=== PATIENT | male | born 1995 | race Two or more races ===

== ENCOUNTER 2018-12-24 12:38 | Emergency (ER) | payer SELFPAY ==
[~2018-12-24] VITALS: Ht 167.6 cm; Wt 72.6 kg
[2018-12-24 13:40] VITALS: BP 131/85
== END 2018-12-24 14:39 | disposition home or self-care (01) ==
LOC: ER 12:47
DX: J32.9 Chronic sinusitis, unspecified (principal); Z90.89 Acquired absence of other organs

== ENCOUNTER 2024-04-27 21:49 | Emergency (ER) | payer MEDICAID, OTHER ==
[~2024-04-27] VITALS: Ht 167.6 cm; Wt 90.0 kg
[2024-04-27 21:57] VITALS: BP 132/73; PULSE 85; RESP 18; TEMP 97.9; O2SAT 95
[2024-04-28] MEDS: IBUPROFEN 800 MG TAB PO ONE (01:26)
[2024-04-28] MEDS: HYDROcodone-ACET 5/325MG TAB PO ONE (01:26)
== END 2024-04-28 01:31 | disposition home or self-care (01) ==
LOC: ER 21:49
DX: S20.212A Contusion of left front wall of thorax, initial encounter (principal); Y04.2XXA Assault by strike against or bumped into by another person, initial encounter; Y93.89 Activity, other specified; Y92.89 Other specified places as the place of occurrence of the external cause; Y99.8 Other external cause status
CPT/HCPCS: 71101